=== PATIENT | male | born 1990 | race American Indian/Alaskan Native ===

== ENCOUNTER 2018-06-17 10:51 | Emergency (ER) | payer SELFPAY ==
[2018-06-17 11:01] VITALS: BP 141/79
--- NOTE | 2018-06-17 14:08 | Emergency Department Report ---
ED Extremity Problem HPI - General Chief complaint: Extremity Injury, Lower Stated complaint: LEFT LEG PAIN/SWOLLEN Time Seen by Provider: 06/17/18 13:45 Source: patient Mode of arrival: Ambulatory Limitations: No Limitations - History of Present Illness Initial comments: 27-year-old male with past medical history right surgery and diagnosed with a torn meniscus in 2014 presents to Hospital with complaints of left knee pain 1 week. Patient has had pain previously but exacerbated 1 week. No recent injury reported. Patient also having knee swelling and lateral knee pain. No fever, warmth, calf tenderness, or calf edema reported. Patient use an newton wrap which helps to control the knee swelling. Patient was told in 2014 that he needed surgery but he did not comply. He does not currently have orthopedic follow-up. Pain is is rated 6/10 in intensity currently worse movement and palpation. Patient able to bear weight - Related Data Previous Rx's Medication Instructions Recorded Last Taken Type Ibuprofen [Motrin] 800 mg PO Q8HR PRN #30 tablet 06/17/18 Unknown Rx Allergies Allergy/AdvReac Type Severity Reaction Status Date / Time coconut Allergy Rash Verified 06/17/18 10:57 ED Review of Systems ROS: Stated complaint: LEFT LEG PAIN/SWOLLEN Other details as noted in HPI Comment: All other systems reviewed and negative ED Past Medical Hx - Past Medical History Previous Medical History?: No - Surgical History Additional Surgical History: right shoulder - Social History Smoking Status: Never Smoker Substance Use Type: Alcohol - Medications Home Medications: Home Medications Medication Instructions Recorded Confirmed Last Taken Type Ibuprofen [Motrin] 800 mg PO Q8HR PRN #30 tablet 06/17/18 Unknown Rx ED Physical Exam - General Limitations: No Limitations - Other Other exam information: General: No limitations, patient is alert in no acute distress Head exam: Atraumatic, normocephalic Eyes exam: Normal appearance ENT: Moist mucous membrane Neck exam: Normal inspection, full range of motion, no meningismus nontender Respiratory exam: Clear to auscultation bilateral, no wheezes, rales, crackles Cardiovascular: Normal rate and rhythm, normal heart sounds Abdomen: Soft, nondistended, and nontender, with normal bowel sounds, no rebound, or guarding Extremity: Full range of motion normal inspection no deformity. No swelling currently. Tenderness at lateral joint space meniscus and lateral collateral ligament. Joint stable with valgus and varus stress. No leg swelling Back: Normal Inspection, full range of motion, no tenderness Neurologic: Alert, oriented x3, cranial nerves intact, no motor or sensory deficit Psychiatric: normal affect, normal mood Skin: Warm, dry, intact ED Course Vital Signs 06/17/18 10:57 Temperature 98.3 F Pulse Rate 59 L Respiratory 16 Rate Blood Pressure 141/79 O2 Sat by Pulse 100 Oximetry - Reevaluation(s) Reevaluation #1: 06/17/18 14:07 Motrin 800 mg provided ED Medical Decision Making - Medical Decision Making Right knee pain Possibly secondary to chronic meniscus injury X-ray felt to be low yield due to lack of acute injury and patient agreed Treated with anti-inflammatory medication Recommended to continue Newton wrap or soft knee brace Limit physical activity Follow-up with orthopedic - Differential Diagnosis fracture, contusion, strain, meniscus injury Critical Care Time: No Critical care attestation.: If time is entered above; I have spent that time in minutes in the direct care of this critically ill patient, excluding procedure time. ED Disposition Clinical Impression: Strain of left knee, Meniscal injury Disposition: TO HOME OR SELFCARE Is pt being admited?: No Does the pt Need Aspirin: No Condition: Stable Instructions: Knee Exercises (GEN), Knee Sprain (ED) Additional Instructions: Take the medication as prescribed. Follow up with your doctor. Return if symptoms worsen as indicated by your discharge instructions. You may buy a soft brace for additional support and keep extremity elevated. Prescriptions: Ibuprofen [Motrin] 800 mg PO Q8HR PRN #30 tablet PRN Reason: Pain, Moderate (4-6) Referrals: [facility] [Provider Group] - 3-5 Days (Primary care clinic) MARCIAL EVANS MD [Staff Physician] - 3-5 Days (Orthopedic doctor) Time of Disposition: 14:10
== END 2018-06-17 14:40 | disposition home or self-care (01) ==
LOC: ED 10:51
DX: S76.912A Strain of unspecified muscles, fascia and tendons at thigh level, left thigh, initial encounter (principal); Z91.018 Allergy to other foods; X58.XXXA Exposure to other specified factors, initial encounter; Y93.89 Activity, other specified; Y92.89 Other specified places as the place of occurrence of the external cause; Y99.8 Other external cause status
CPT/HCPCS: 99282